=== PATIENT | female | born 1985 | race Caucasian/White ===

== ENCOUNTER 2017-03-16 15:16 | Observation (INO) | payer BC, MEDICAID ==
[2017-03-16 15:16] VITALS: BMI 39.6
[2017-03-16 15:28] VITALS: O2SAT 100
--- NOTE | 2017-03-16 16:03 | C.PDOC ---
Time Seen by Provider: 03/16/17 15:47 Chief Complaint (Nursing): Abdominal Pain Past Medical History Vital Signs: Last Vital Signs Temp 98.1 F 03/16/17 15:24 Pulse 62 03/16/17 15:24 Resp 18 03/16/17 15:24 BP 119/76 03/16/17 15:24 Pulse Ox 100 03/16/17 15:24 - Medical History PMH: Sleep Apnea (NO C PAP) Denies: Chronic Kidney Disease Surgical History: Endoscopy - [facility] Procedures ESOPHAGOGASTRODUODENOSCOPY [EGD] W/CLOSED BIOPSY (05/14/14) LAPAROSCOPIC VERTICAL (SLEEVE) GASTRECTOMY (07/13/14) OTHER ENDOSCOPY OF SM INTEST (07/13/14) Family History: States: Unknown Family Hx - Social History Hx Alcohol Use: No Hx Substance Use: No - Immunization History Hx Tetanus Toxoid Vaccination: No Hx Influenza Vaccination: No Hx Pneumococcal Vaccination: No ED Course And Treatment O2 Sat by Pulse Oximetry: 100 ED OBSERVATION Date of observation admission: 03/16/17 Time of observation admission: 15:30 - Observation admission statement Patient is being placed in observation because:: abd pain, vomiting - Goals of Observation Goals of observation are:: NEG ACUTE ABD
[2017-03-16] MEDS ORDERED: Sodium Chloride 0.9% 1,000 ML IV ONE (16:04)
--- NOTE | 2017-03-16 16:09 | C.PDOC ---
History Of Present Illness 31 year old female was sent to the ED by her PMD for evaluation of persistent bloating, nausea, and feelings of fullness for one month. Patient notes a history of a gastric [place] [address] Tello and a Cesarian section. She notes nausea as her main complaint upon arrival and denies any fever or weight loss. Time Seen by Provider: 03/16/17 15:47 Chief Complaint (Nursing): Abdominal Pain History Per: Patient History/Exam Limitations: no limitations Onset/Duration Of Symptoms: Persistent (for one month ) Location Of Pain/Discomfort: Diffuse (feeling of fullness ) Radiation Of Pain To:: None Associated Symptoms: Nausea, Other (bloating and feelings of fullness ) Last Bowel Movement: Today Recent travel outside of the [place]: No Abnormal Vaginal Bleeding: No Past Medical History Reviewed: Historical Data, Nursing Documentation, Vital Signs Vital Signs: Last Vital Signs Temp 98.1 F 03/16/17 15:24 Pulse 50 L 03/16/17 16:43 Resp 13 03/16/17 16:43 BP 130/48 L 03/16/17 16:43 Pulse Ox 100 03/16/17 18:10 - Medical History PMH: Sleep Apnea (NO C PAP) Surgical History: Endoscopy - [facility] Procedures ESOPHAGOGASTRODUODENOSCOPY [EGD] W/CLOSED BIOPSY (05/14/14) LAPAROSCOPIC VERTICAL (SLEEVE) GASTRECTOMY (07/13/14) OTHER ENDOSCOPY OF SM INTEST (07/13/14) Family History: States: Unknown Family Hx - Social History Hx Alcohol Use: No Hx Substance Use: No - Immunization History Hx Tetanus Toxoid Vaccination: No Hx Influenza Vaccination: No Hx Pneumococcal Vaccination: No Review Of Systems Constitutional: Negative for: Fever, Chills Cardiovascular: Negative for: Chest Pain, Palpitations Respiratory: Negative for: Cough, Shortness of Breath Gastrointestinal: Positive for: Nausea, Abdominal Pain (feeling of fullness ) Physical Exam - Physical Exam Appears: Non-toxic, No Acute Distress Skin: Warm, Dry Head: Atraumatic Eye(s): bilateral: Normal Inspection, PERRL, EOMI Oral Mucosa: Moist Neck: Supple Chest: Symmetrical, No Deformity Cardiovascular: Rhythm Regular Respiratory: Normal Breath Sounds, No Rales, No Rhonchi, No Wheezing Gastrointestinal/Abdominal: Soft, Tenderness (mild epigastric tenderness ), No Distention, No Guarding, No Rebound Extremity: Normal ROM, No Tenderness Neurological/Psych: Oriented x3 ED Course And Treatment - Laboratory Results Result Diagrams: 03/16/17 16:27 03/16/17 16:27 ECG: Interpreted By Me ECG Rhythm: Sinus Bradycardia ECG Interpretation: Normal Rate From EC O2 Sat by Pulse Oximetry: 100 (room air ) Pulse Ox Interpretation: Normal Progress Note: Bariatric chest. CMP, Lipase, and UA were ordered. Patient was given zofran and IV fluids. ED OBSERVATION Discharge: Yes Date of observation admission: 03/16/17 Time of observation admission: 15:30 - Observation admission statement Patient is being placed in observation because:: abd pain, vomiting - Goals of Observation Goals of observation are:: NEG ACUTE ABD - Progress Note Progress Note: 03/16/17 16:43 RN STATES PT W PERIODIC BRADYCARDIA. NO SYNCOPAL, PAIN SX. SBP WNL 03/16/17 18:10 D/W SURG RESIDENT WILL EVAL 03/16/17 18:[address] BOYD. PT APPEARS COMFORTABLE, WILL DC Disposition Counseled Patient/Family Regarding: Studies Performed, Diagnosis, Need For Followup, Rx Given - Disposition Disposition: HOME/ ROUTINE Disposition Time: 18:38 Condition: IMPROVED - Clinical Impression Clinical Impression: Biliary colic - Scribe Statement The provider has reviewed the documentation as recorded by the Scribcm Estes All medical record entries made by the Poonamibcm were at my direction and personally dictated by me. I have reviewed the chart and agree that the record accurately reflects my personal performance of the history, physical exam, medical decision making, and the department course for this patient. I have also personally directed, reviewed, and agree with the discharge instructions and disposition.
[2017-03-16 16:31] LABS: BASO % 0.5 % (0.0-2.0); EOS # 0.3 K/uL (0.0-0.7); EOS % 3.8 % (0.0-4.0); HEMOGLOBIN 10.9 g/dL (11.0-16.0); LYMPH # 2.1 K/uL (1.0-4.3); LYMPH % 25.6 % (20.0-40.0); MEAN CORPUSCULAR HEMOGLOBIN 25.7 pg (27.0-31.0); MEAN CORPUSCULAR HGB CONC 32.3 g/dL (33.0-37.0); MEAN PLATELET VOLUME 8.2 fL (7.2-11.7); MONO # 0.6 K/uL (0.0-0.8); NEUT # 5.1 K/uL (1.8-7.0); NEUT % 63.1 % (50.0-75.0); RBC 4.22 Mil/uL (3.80-5.20); RED CELL DISTRIBUTION WIDTH 16.9 % (11.5-14.5)
[2017-03-16] MEDS ORDERED: Sodium Chloride 0.9% 1,000 ML ONE (16:33)
[2017-03-16 16:36] LABS: MEAN CELL VOLUME 79.7 fL (81.0-99.0)
[2017-03-16 16:37] LABS: HCG,QUALITATIVE URINE NEGATIVE (NEGATIVE); SQUAMOUS EPITHIAL 4 /hpf (0-5); URINE BACTERIA RARE (<OCC); URINE BILIRUBIN NEGATIVE (NEGATIVE); URINE BLOOD NEGATIVE (NEGATIVE); URINE CLARITY Clear (Clear); URINE COLOR Yellow (YELLOW); URINE GLUCOSE (UA) NORMAL (Normal); URINE LEUKOCYTE ESTERASE NEG Leu/uL (Negative); URINE NITRATE NEGATIVE (NEGATIVE); URINE PROTEIN NEGATIVE (NEGATIVE); URINE UROBILINOGEN NORMAL mg/dL (0.2-1.0)
[2017-03-16 16:38] LABS: ALBUMIN 4.1 g/dL (3.5-5.0)
[2017-03-16 16:41] LABS: ALB/GLOB RATIO 1.2 (1.0-2.1); AST/SGOT 14 U/L (14-36); BLOOD UREA NITROGEN 9 mg/dL (7-17); GFR AFRICAN-AMERICAN > 60; GFR NON-AFRICAN AMERICAN > 60
[2017-03-16 16:42] LABS: ALT/SGPT 24 U/L (9-52); CALCIUM 8.9 mg/dl (8.6-10.4); LIPASE 135 U/L (23-300)
--- NOTE | 2017-03-16 17:51 | CT ---
PROCEDURE: CT Chest without contrast HISTORY: ABD PAIN, BLOATING HO GASTRIC SLEEVE COMPARISON: None. TECHNIQUE: Contiguous axial images were obtained through the chest without intravenous contrast enhancement. Sagittal and coronal reconstructions were performed. Examination was performed following the administration of oral contrast material. Radiation dose (DLP): 700.23 mGy-cm. This CT exam was performed using one or more of the following dose reduction techniques: Automated exposure control, adjustment of the mA and/or kV according to patient size, and/or use of iterative reconstruction technique. FINDINGS: LUNGS: Clear lungs. Visualized airway clear. MEDIASTINUM: Unremarkable thoracic aorta. No aneurysm. Normal sized heart. Main pulmonary artery unremarkable. No vascular congestion. No lymphadenopathy. There is no oral contrast material seen within the esophagus to suggest gastroesophageal reflux. PLEURA: No pleural fluid. No pneumothorax. BONES: No fracture. No destructive lesion. UPPER ABDOMEN: Status post sleeve gastrectomy. Surgical suture line seen along the greater curvature of the stomach. No evidence of extravasation. No evidence of obstruction. Oral contrast material is seen within the proximal jejunum. OTHER FINDINGS: None. IMPRESSION: Status post sleeve gastrectomy. No evidence of extravasation or obstruction. No evidence of gastroesophageal reflux. Otherwise unremarkable examination.
--- NOTE | 2017-03-16 17:58 | US ---
HISTORY: ruq pain ro acute stephanie COMPARISON: None. TECHNIQUE: Sonographic evaluation of the right upper quadrant of the abdomen. FINDINGS: LIVER: Measures 15.0 cm in length. There is diffuse increased echogenicity of the liver parenchyma. No mass. No intrahepatic bile duct dilatation. GALLBLADDER: There are gallstones. No evidence of wall thickening or pericholecystic fluid. There is positive sonographic Kim's sign. COMMON BILE DUCT: Measures 2.8 mm. No stones. No dilatation. PANCREAS: Unremarkable as visualized. No mass. No ductal dilatation. RIGHT KIDNEY: Measures 10.5 cm in length. Normal echogenicity. No calculus, mass, or hydronephrosis. AORTA: No aneurysmal dilatation. IVC: Unremarkable. OTHER FINDINGS: None . IMPRESSION: 1. Diffuse increased echogenicity in the liver may reflect hepatic steatosis however parenchymal infectious/ inflammatory etiologies cannot be entirely excluded. Clinical and laboratory correlation is advised. 2. Cholelithiasis. The sonographic Kim's sign is positive as documented by the technologist. No evidence of gallbladder distention, wall thickening or pericholecystic fluid. Please correlate for acute cholecystitis.
--- NOTE | 2017-03-16 19:04 | CP.PCM.CON ---
History of Present Illness - History of Present Illness History of Present Illness: General sx consult note for Dr. Jermaine Crawford, PGY-1 Pt S & E at bedside. 31F w/PMH sig for hx of morbid obesity s/p gastric sleeve placement (2013) evaluated for cholelithiasis. Patient reports symptoms of nausea, early satiety , bloating, abdominal discomfort due to gas x 1 mo. Denies ever having symptoms previously. Symptoms recur with all oral intake excluding water. Saw PMD 5 days prior to evaluation, upon physical exam, pt reports epigastric and RUQ pain. No pain after exam. No pain associated with eating fatty foods. Denies emesis, F/C, SOB, CP, palpitations, changes in bowel or bladder habits, dysphagia or odynophagia. PMH: Hx morbid obesity, GERD, PCOS PSH: Gastric sleeve placement w/Dr Tello (2013), x 1 All: Denies SH: Denies tobacco, ETOH, or illicit drug use Outpatient GI: [facility] Review of Systems - Review of Systems All systems: reviewed and no additional remarkable complaints except - Constitutional Constitutional: Chills. absent: Fever - EENT Nose/Mouth/Throat: absent: Dysphagia, Odynophagia, Sore Throat - Cardiovascular Cardiovascular: absent: Chest Pain, Palpitations - Respiratory Respiratory: absent: Cough - Gastrointestinal Gastrointestinal: Bloating, Nausea. absent: Constipation, Diarrhea, Hematochezia, Vomiting - Genitourinary Genitourinary: absent: Change in Urinary Stream, Hematuria Past Patient History - Past Medical History & Family History Past Medical History?: No - Past Social History Smoking Status: Never Smoked - CARDIAC Hx Cardiac Disorders: No - PULMONARY Hx Sleep Apnea: Yes (NO C PAP) - NEUROLOGICAL Hx Neurological Disorder: No - HEENT Hx HEENT Problems: No - RENAL Hx Chronic Kidney Disease: No - ENDOCRINE/METABOLIC Hx Endocrine Disorders: No - HEMATOLOGICAL/ONCOLOGICAL Hx Blood Disorders: No - INTEGUMENTARY Hx Dermatological Problems: No - MUSCULOSKELETAL/RHEUMATOLOGICAL Hx Musculoskeletal Disorders: No Hx Falls: No - GASTROINTESTINAL Hx Gastroesophageal Reflux: Yes Other/Comment: gastric sleeve done - GENITOURINARY/GYNECOLOGICAL Hx Genitourinary Disorders: No - PSYCHIATRIC Hx Substance Use: No - SURGICAL HISTORY Hx Section: Yes (x1) Hx Gastric Bypass Surgery: Yes - ANESTHESIA Hx Anesthesia: Yes Hx Anesthesia Reactions: No Hx Malignant Hyperthermia: No Meds Home Medications: Home Medication List Medication Instructions Recorded Confirmed Type Docusate Sodium [Colace] 100 mg PO BID PRN #30 capsule 03/16/17 Rx Ondansetron [Zofran Odt] 4 mg PO TID PRN #9 odt 03/16/17 Rx oxyCODONE/Acetaminophen [Percocet 1 ea PO Q6 PRN #10 tab 03/16/17 Rx 5/325 mg Tab] Allergies/Adverse Reactions: Allergies Allergy/AdvReac Type Severity Reaction Status Date / Time No Known Allergies Allergy Verified 11/04/15 12:26 - Medications Medications: Current Medications Sodium Chloride (Sodium Chloride 0.9%) 1,000 mls @ 100 mls/hr IV .Q10H ONE Stop: 03/17/17 02:03 Last Admin: 03/16/17 16:38 Dose: 100 mls/hr Physical Exam - Constitutional Appears: Non-toxic, No Acute Distress - Head Exam Head Exam: ATRAUMATIC, NORMAL INSPECTION, NORMOCEPHALIC - Eye Exam Eye Exam: EOMI, Normal appearance - ENT Exam ENT Exam: Mucous Membranes Moist, Normal Exam - Neck Exam Neck exam: Positive for: Full Rom, Normal Inspection - Respiratory Exam Respiratory Exam: Clear to Auscultation Bilateral, NORMAL BREATHING PATTERN - Cardiovascular Exam Cardiovascular Exam: REGULAR RHYTHM, +S1, +S2 - GI/Abdominal Exam GI & Abdominal Exam: Normal Bowel Sounds, Soft. absent: Distended, Firm, Guarding, Mass, Rebound, Rigid, Tenderness - Extremities Exam Extremities exam: Positive for: normal inspection. Negative for: pedal edema - Neurological Exam Neurological exam: Alert, CN II-XII Intact, Oriented x3 - Psychiatric Exam Psychiatric exam: Normal Affect, Normal Mood - Skin Skin Exam: Dry, Intact, Normal Color, Warm Additional comments: Well healed small linear surgical scars over abdomen Results - Vital Signs Recent Vital Signs: Last Vital Signs Temp 98.4 F 03/16/17 18:45 Pulse 46 L 03/16/17 18:45 Resp 20 03/16/17 18:45 BP 114/63 03/16/17 18:45 Pulse Ox 100 03/16/17 18:45 - Labs Result Diagrams: 03/16/17 16:27 03/16/17 16:27 Labs: Laboratory Results - last 24 hr 03/16/17 03/16/17 03/16/17 16:27 16:27 16:27 WBC 8.0 RBC 4.22 Hgb 10.9 L Hct 33.7 L MCV 79.7 L D MCH 25.7 L MCHC 32.3 L RDW 16.9 H Plt Count 322 MPV 8.2 Neut % (Auto) 63.1 Lymph % (Auto) 25.6 [place] % (Auto) 7.0 Eos % (Auto) 3.8 Baso % (Auto) 0.5 Neut # 5.1 Lymph # 2.1 [place] # 0.6 Eos # 0.3 Baso # 0.0 Sodium 139 Potassium 3.4 L Chloride 96 L Carbon Dioxide 27 Anion Gap 20 BUN 9 Creatinine 0.7 Est GFR ( Amer) > 60 Est GFR (Non-Af Amer) > 60 POC Glucose (mg/dL) Random Glucose 84 Calcium 8.9 Total Bilirubin 0.5 AST 14 ALT 24 Alkaline Phosphatase 56 Total Protein 7.4 Albumin 4.1 Globulin 3.3 Albumin/Globulin Ratio 1.2 Lipase 135 Urine Color Yellow Urine Clarity Clear Urine pH 6.0 Ur Specific [place] 1.015 Urine Protein Negative Urine Glucose (UA) Normal Urine Ketones Negative Urine Blood Negative Urine Nitrate Negative Urine Bilirubin Negative Urine Urobilinogen Normal Ur Leukocyte Esterase Neg Urine WBC (Auto) 1 Urine RBC (Auto) 1 Ur Squamous Epith Cells 4 Urine Bacteria Rare Urine HCG, Qual Negative 03/16/17 16:54 WBC RBC Hgb Hct MCV MCH MCHC RDW Plt Count MPV Neut % (Auto) Lymph % (Auto) [place] % (Auto) Eos % (Auto) Baso % (Auto) Neut # Lymph # [place] # Eos # Baso # Sodium Potassium Chloride Carbon Dioxide Anion Gap BUN Creatinine Est GFR ( Amer) Est GFR (Non-Af Amer) POC Glucose (mg/dL) 85 Random Glucose Calcium Total Bilirubin AST ALT Alkaline Phosphatase Total Protein Albumin Globulin Albumin/Globulin Ratio Lipase Urine Color Urine Clarity Urine pH Ur Specific [place] Urine Protein Urine Glucose (UA) Urine Ketones Urine Blood Urine Nitrate Urine Bilirubin Urine Urobilinogen Ur Leukocyte Esterase Urine WBC (Auto) Urine RBC (Auto) Ur Squamous Epith Cells Urine Bacteria Urine HCG, Qual Assessment & Plan - Assessment and Plan (Free Text) Assessment: 31F w/cholelithiasis, stable, currently asymptomatic. Plan: Patient to follow up with Dr. Beatncourt for outpatient cholecystectomy DW attending Yvette, PGY-1 - Date & Time Date: 03/16/17 Time: 18:30
[2017-03-17 11:52] VITALS: BP 114/63; PULSE 46; RESP 20
[2017-03-17 12:03] VITALS: TEMP 98.4
--- NOTE | 2017-03-19 13:02 | CARD ---
APPROVED REPORT EKG Measurement Heart [id number] <Conclusion> Sinus bradycardia Otherwise normal ECG
== END 2017-03-16 18:39 | disposition home or self-care (01) ==
LOC: C.ER 15:16 → C.9OBSV 15:30
PROVIDERS: ADMIT Emergency Medicine; ATTEND Emergency Medicine
DX: K80.70 Calculus of gallbladder and bile duct without cholecystitis without obstruction (principal); Z98.84 Bariatric surgery status; K21.9 Gastro-esophageal reflux disease without esophagitis; E28.2 Polycystic ovarian syndrome; E66.01 Morbid (severe) obesity due to excess calories; R14.0 Abdominal distension (gaseous); R11.0 Nausea; G47.30 Sleep apnea, unspecified; R00.1 Bradycardia, unspecified; R10.13 Epigastric pain
CPT/HCPCS: 36415; 71250; 76705; 80053; 81001; 82948; 83690; 84703; 85025; 96360; 96374; 99285; G0378; J2405; J7040